=== PATIENT | female | born 1975 | race Caucasian/White ===

== ENCOUNTER 2020-03-06 11:00 | Day surgery (SDC) | payer BC ==
[~2020-03-06] VITALS: Ht 160 cm; Wt 61.2 kg
[2020-03-06] MEDS ORDERED: SUGAMMADEX SODIUM 200 MG/2 ML VIAL IV ONE (11:01)
[2020-03-06 11:44] LABS: HCG,QUAL RESULT NEGATIVE (NEGATIVE)
[2020-03-06] MEDS ORDERED: BUPIVACAINE /PF 0.5% 30 ML VIAL INJ ONE (12:21)
[2020-03-06] MEDS ORDERED: NS IRRIG SOLN 1000 ML IR ONE (12:21)
[2020-03-06] MEDS ORDERED: ROCURONIUM BROMIDE 10 MG/ML (ZEMURON) IV ONE (12:21)
[2020-03-06] MEDS ORDERED: ONDANSETRON HCL 4 MG/2 ML VIAL IVP ONE (12:21)
[2020-03-06] MEDS ORDERED: PROPOFOL 200MG/ 20ML VIAL (DIPRIVAN) IV ONE (12:21)
[2020-03-06] MEDS ORDERED: MIDAZOLAM HCL 5 MG/5 ML VIAL IVP ONE (12:21)
[2020-03-06] MEDS ORDERED: LR 1,000 ML IV.SOLN IV ONE (12:21)
[2020-03-06] MEDS ORDERED: ISOFLURANE 15 MIN GAS INH ONE (12:21)
[2020-03-06] MEDS ORDERED: fentaNYL CITRATE 250 MCG/5 ML AMP IV ONE (12:21)
[2020-03-06] MEDS ORDERED: DEXAMETHASONE SOD PHOSPHATE 4 MG/ML VIAL IVP ONE (12:21)
[2020-03-06] MEDS ORDERED: OXYCODONE/ACETAMINOPHEN 5-325 TABLET PO PRN (15:15)
[2020-03-06] MEDS ORDERED: MIDAZOLAM HCL 2 MG/2 ML VIAL (VERSED) IVP PRN (15:15)
[2020-03-06] MEDS ORDERED: SIMETHICONE 80 MG TAB.CHEW PO PRN (15:15)
[2020-03-06] MEDS ORDERED: KETOROLAC TROMETHAMINE 30 MG VIAL IVP PRN (15:15)
[2020-03-06] MEDS ORDERED: HYDROmorphone 1 MG INJ. 1 MG/ML AMPUL IVP PRN ×2 (15:15)
[2020-03-06] MEDS ORDERED: MORPHINE SULFATE 10 MG/ML VIAL IVP PRN (15:15)
[2020-03-06] MEDS ORDERED: MEPERIDINE HCL/PF 25 MG/ML DISP.SYRIN IVP PRN (15:15)
[2020-03-06] MEDS ORDERED: DOCUSATE SODIUM 100 MG CAPSULE PO PRN (15:15)
[2020-03-06] MEDS ORDERED: IBUPROFEN 800 MG TABLET PO PRN (15:15)
[2020-03-06] MEDS ORDERED: ONDANSETRON HCL 4 MG/2 ML VIAL IVP PRN ×2 (15:15)
[2020-03-06] MEDS ORDERED: ONDANSETRON HCL 4 MG/2 ML VIAL ONE (15:43)
[2020-03-06] MEDS ORDERED: HYDROmorphone 1 MG INJ. 1 MG/ML AMPUL ONE (15:44)
--- NOTE | 2020-03-06 16:30 | NUR ---
S/P SURGERY PATIENT RECEIVED FROM OR S/P ROBOTIC LAP ASSISTED WITH HYSTERECTOMY , WITH IVF , IN BED ASLEEP NO DISTRESS, RESP EVEN AND UNLABORED SATING 98% IN ROOM AIR , WITH IVF INFUSING POST OP, WITH [facility] CATH INTACT YELLOW OUTPUT, ABDOMINAL DRESSING 4 SITES INTACT , OPENS EYES WHEN NAME IS CALLED AND SLEEP AGAIN
--- NOTE | 2020-03-06 17:22 | NUR ---
UPDATED UPDATED IN THE FRONT LOBBY , INFORMED PATIENT WILL BE STAYING OVERNIGHT , INFORMED PATIENT TO CALL WHEN FULLY AWAKE STILL SLEEPY BUT NOT IN PAIN
--- NOTE | 2020-03-06 18:59 | NUR ---
ENDORSEMENT PATIENT STAYED ASLEEP MOST OF THE TIME BUT ABLE TO ANSWER AND OPENS EYES WHEN AWAKEN NO DISTRESS, MAINTAINED 98% SATURATION ON ROOM AIR , RESP EVEN AND UNLABORED
--- NOTE | 2020-03-06 19:30 | NUR ---
initial notes: pt i s awake, alert, oriented x 4, no sob, no distress, complain of pain upon movement. pt s/p robotic assisted hysterectomy, pt has 4 abdominal incision- cdi, pt has carroll catheter draining to yellow urine- will be dc at 2200. pt has iv lock to left hand gauge 20- intact and patent. discus to pt plan of care, pt verbalized understanding. needs attended. call light in reach. low bed position and lock will follow-up.
[2020-03-06 19:59] VITALS: BP_SYST 114
[2020-03-06] MEDS: OXYCODONE/ACETAMINOPHEN 5-325 TABLET PO PRN (20:11)
--- NOTE | 2020-03-06 22:00 | NUR ---
pt is resting, no pain, not distress. stable.
--- NOTE | 2020-03-07 | NUR ---
pt is awake, alert. not distress, complain of moderate pain. vital sign are with in normal limit. educate pt needs attended, call light in reach. will follow-up.
[2020-03-07 00:01] VITALS: BP_SYST 113
--- NOTE | 2020-03-07 02:00 | NUR ---
sleeping, no sign of pain, no sob, stable. call light in reach. will monitor.
--- NOTE | 2020-03-07 04:00 | NUR ---
assisted pt to bathroom, and back to bed. pt urinate to blood tinged urine, no active bleeding. abdominal wound dressing dry and intact. steady gait, needs attended. call light in reach. will monitor.
--- NOTE | 2020-03-07 06:00 | NUR ---
sleeping, no pain, no sob, stable. call light in reach. will follow-up.
--- NOTE | 2020-03-07 07:18 | NUR ---
closing: pt is awake, alert. no pain. no sob. needs attended the whole shift, bedside report given to am rn.
[2020-03-07] MEDS ORDERED: HYDR-4272 PO (07:20)
[2020-03-07] MEDS ORDERED: IBUP-1971 PO (07:21)
[2020-03-07] MEDS ORDERED: DOCU-144 PO (07:22)
[2020-03-07 08:00] VITALS: BP_SYST 95
--- NOTE | 2020-03-07 08:00 | NUR ---
RN INITIAL NOTES RECEIVED PATIENT IN BED ALERT AWAKE AND VERBAL , DENIES ANY PAIN , RESP EVEN AND UNLABORED , PATIENT IS AWARE SHE WILL BE DISCHARGING TODAY
[2020-03-07] MEDS: OXYCODONE/ACETAMINOPHEN 5-325 TABLET PO PRN (08:43)
[2020-03-07 08:47] VITALS: BP_SYST 96
--- NOTE | 2020-03-07 09:30 | NUR ---
D/C Patient Patient given medication reconciliation form and D/C instructions. Exit Care provided. Patient verbalized understanding. MD discussed with patient the results and treatment provided. Ambulatory with steady gait for discharge to home. Patient in stable condition, ID band removed. IV catheter removed, intact and dressing applied, no active bleeding. Rx given to patient and follow up appt to PCP and Surgery follow up will be called by patient for appt and dressing is intact will be done by Surgeon in the office visit , will pick pack worker patient in the lobby. Patient educated on pain management. All belongings sent with patient.
== END 2020-03-07 09:20 | disposition home or self-care (01) ==
LOC: SDS 11:00 → SMU 11:00 → SDS 03-07 09:20
PROVIDERS: ATTEND Obstetrics & Gynecology
DX: D06.1 Carcinoma in situ of exocervix (principal); Z97.5 Presence of (intrauterine) contraceptive device; Z98.890 Other specified postprocedural states
CPT/HCPCS: 58571; 84703; 88307; C1727; C9399; J1100; J1170; J1885; J2250; J2405; J2704; J3010; J3490; J7120; E0190